=== PATIENT | female | born 1960 | race Caucasian/White ===

== ENCOUNTER 2019-01-23 15:37 | Inpatient (IN) ==
[2019-01-23] MEDS ORDERED: NICOTINE 21 MG/24 HR PATCH TRANSDERM PRN (20:01)
[2019-01-23] MEDS ORDERED: ONDANSETRON 4 MG/2 ML VIAL IV PRN (20:01)
[2019-01-23] MEDS ORDERED: NITROGLYCERIN SL 0.4 MG TABLET SL ONE (20:24)
[2019-01-23] MEDS: NITROGLYCERIN SL 0.4 MG TABLET SL PRN (20:28)
[2019-01-23] MEDS: MORPHINE 4 MG/1 ML VIAL IV PRN (20:29)
[2019-01-23 20:34] LABS: Basophils # 0.1 10*3/uL (0.0-0.2); Basophils % 0.6 % (0.0-0.8); Eosinophils # 0.2 10*3/uL (0.0-0.87); Hematocrit 30.1 VOL% (35.7-47.0); Immature Granulocytes % 0.8 %; Immature Granulocytes Absolute 0.07 #; Lymphocytes # 1.1 10*3/uL (1.4-4.0); Lymphocytes % 12.3 % (21.3-54.2); Mean Corpuscular HGB Conc 33.2 GM/DL (32-36); Mean Corpuscular Volume 85.5 FL (87-102); Mean Platelet Volume 8.9 FL (9.6-12.0); Monocytes % 10.8 % (1.7-12.7); Neutrophils % 73.5 % (38.7-73.9); Platelet Count 270 T/CUMM (130-400); Red Blood Count 3.52 MC/CUMM (3.8-5.5); Red Cell Distribution Width 13.1 % (9.3-17.3); White Blood Count 8.9 T/CUMM (4-12)
[2019-01-23] MEDS ORDERED: SODIUM CHLORIDE 0.9% 500 ML IV ONE ×2 (20:36→22:01)
[2019-01-23 21:07] LABS: Alanine Aminotransferase 18 U/L (13-56); Albumin 2.9 G/DL (3.4-5.0); Alkaline Phosphatase 54 U/L (45-117); Aspartate Amino Transferase 27 U/L (0-37); Bilirubin,Total < 0.39 MG/DL (0.2-1.0); Blood Urea Nitrogen 20 MG/DL (7-18); Calcium 8.7 MG/DL (8.5-10.1); Estimated Glom Filtration Rate 68 ML/MIN; Glucose 97 MG/DL (74-106); HDL Cholesterol 49 MG/DL (40-60); Osmolality,Calculated 279.5 MOS/KG (273-304); Risk Ratio 2.59; Total Protein 6.9 G/DL (6.4-8.3); Triglycerides 54 MG/DL (2-150); VLDL CHOLESTEROL 10.8 MG/DL
[2019-01-23] MEDS: POTASSIUM CHLORIDE 20 MEQ TABLET PO PRN (23:20)
[2019-01-24] MEDS: NITROGLYCERIN SL 0.4 MG TABLET SL PRN (02:55)
[2019-01-24] MEDS: MORPHINE 4 MG/1 ML VIAL IV PRN ×3 (02:57→23:25)
[2019-01-24] MEDS ORDERED: ENOXAPARIN 60 MG/0.6 ML SYRINGE SUBCUT SCH (03:30)
[2019-01-24] MEDS: POTASSIUM CHLORIDE 20 MEQ TABLET PO PRN ×2 (03:35→06:25)
[2019-01-24] MEDS: ASPIRIN 325 MG TABLET PO SCH (09:33)
[2019-01-24] MEDS: PANTOPRAZOLE 40 MG TABLET PO SCH (09:33)
[2019-01-24] MEDS ORDERED: LACTATED RINGERS 1,000 ML IV ONE (10:47)
[2019-01-24 11:11] LABS: Basophils # 0.1 10*3/uL (0.0-0.2); Basophils % 0.9 % (0.0-0.8); Eosinophils # 0.1 10*3/uL (0.0-0.87); Eosinophils % 2.3 % (0.00-10.9); Hematocrit 29.9 VOL% (35.7-47.0); Hemoglobin 9.7 GM/DL (12.0-16.0); Immature Granulocytes % 0.5 %; Immature Granulocytes Absolute 0.03 #; Lymphocytes # 0.7 10*3/uL (1.4-4.0); Lymphocytes % 12.3 % (21.3-54.2); Mean Corpuscular HGB Conc 32.4 GM/DL (32-36); Mean Corpuscular Volume 88.2 FL (87-102); Monocytes % 9.1 % (1.7-12.7); Neutrophils % 74.9 % (38.7-73.9); Platelet Count 234 T/CUMM (130-400); Red Blood Count 3.39 MC/CUMM (3.8-5.5); Red Cell Distribution Width 13.3 % (9.3-17.3); White Blood Count 5.6 T/CUMM (4-12)
[2019-01-24] MEDS ORDERED: POTASSIUM CHLORIDE RIDER 10 MEQ in PREMIX 1 EACH IV PRN (11:26)
[2019-01-24] MEDS ORDERED: diphenhydrAMINE CAP 25 MG CAPSULE PO ONE (11:26)
[2019-01-24] MEDS ORDERED: DIAZEPAM 5 MG TABLET PO ONE (11:26)
[2019-01-24] MEDS ORDERED: MAGNESIUM SULF RIDER 2 GM in PREMIX 1 EACH IV PRN (11:26)
[2019-01-24 11:27] LABS: INR 0.9; PT Patient Result 10.1 SECS (9.6-12.2)
[2019-01-24 11:36] LABS: Albumin 2.6 G/DL (3.4-5.0); Bilirubin,Total 0.4 MG/DL (0.2-1.0); CKMB % 10.9 %; Calcium 8.3 MG/DL (8.5-10.1); Osmolality,Calculated 286.8 MOS/KG (273-304); Total Protein 6.6 G/DL (6.4-8.3)
[2019-01-24 11:37] LABS: Troponin I 8.41 NG/ML (0.00-0.045)
[2019-01-24] MEDS ORDERED: HEPARIN/NACL 0.9% 2 UNITS/ML 1,000 ML IV ONE (11:58)
[2019-01-24] MEDS ORDERED: LIDOCAINE 1% 20 ML VIAL ONE (12:13)
[2019-01-24 12:17] LABS: Apearance,Urine CLEAR (Clear); Bacteria,Urine Occasional /HPF (Few); Bilirubin,Urine Negative (Negative); Blood, Urine Moderate mg/dL (Negative); Glucose,Urine (UA) Negative (Negative); Ketones,Urine Negative (Negative); Mucus,Urine Occasional /LPF (Occasional); Nitrite,Urine Negative (Negative); Protein,Urine Negative; RBC,Urine 7 /HPF (0-4); Squamous Epithelial Cell,Urine Occasional /HPF (0-10); Urine Color Yellow (Yellow); Urine Urobilinogen < 2.0 EU/DL (0.2-1.0); WBC,Urine 11 /HPF (0-6)
[2019-01-24] MEDS ORDERED: HYDROmorphone 2 MG/1 ML VIAL ONE (12:21)
[2019-01-24] MEDS ORDERED: MIDAZOLAM 2 MG/2 ML VIAL ONE (12:22)
[2019-01-24] MEDS ORDERED: ZALEPLON 5 MG CAPSULE PO PRN (13:02)
[2019-01-24] MEDS: ROSUVASTATIN 20 MG TABLET PO SCH (15:50)
[2019-01-24] MEDS: NITROFURANTOIN MACRO/MONO 100 MG CAPSULE PO SCH ×2 (15:51→20:56)
[2019-01-25 04:57] LABS: Basophils % 0.3 % (0.0-0.8); Eosinophils # 0.2 10*3/uL (0.0-0.87); Hematocrit 28.6 VOL% (35.7-47.0); Immature Granulocytes % 0.5 %; Immature Granulocytes Absolute 0.04 #; Lymphocytes # 0.9 10*3/uL (1.4-4.0); Lymphocytes % 11.7 % (21.3-54.2); Mean Corpuscular HGB Conc 31.5 GM/DL (32-36); Mean Corpuscular Volume 87.5 FL (87-102); Mean Platelet Volume 9.4 FL (9.6-12.0); Monocytes % 7.4 % (1.7-12.7); Neutrophils % 77.1 % (38.7-73.9); Platelet Count 251 T/CUMM (130-400); Red Blood Count 3.27 MC/CUMM (3.8-5.5); Red Cell Distribution Width 13.3 % (9.3-17.3); White Blood Count 7.3 T/CUMM (4-12)
[2019-01-25 08:01] VITALS: BP 108/60
[2019-01-25] MEDS: NITROFURANTOIN MACRO/MONO 100 MG CAPSULE PO SCH (08:47)
[2019-01-25] MEDS: ASPIRIN 325 MG TABLET PO SCH (08:47)
[2019-01-25] MEDS: ROSUVASTATIN 20 MG TABLET PO SCH (08:47)
[2019-01-25] MEDS: PANTOPRAZOLE 40 MG TABLET PO SCH (08:48)
[2019-01-25] MEDS ORDERED: METOPROLOL TARTRATE 25 MG TABLET PO SCH (09:00)
== END 2019-01-25 11:05 | disposition home or self-care (01) | DRG 190 ==
LOC: SUATTDRO 18:17 → N.TELES 18:17
PROVIDERS: ADMIT Internal Medicine; ATTEND Family Medicine
PROC: CLCCHCL (ICD-10-PCS; 2019-01-24 12:45)